=== PATIENT | male | born 1945 | race African-American/Black ===

== ENCOUNTER 2021-08-12 18:26 | Emergency (ER) | payer BC, MEDICARE ==
[~2021-08-12] VITALS: Ht 185.4 cm; Wt 95.3 kg
[~2021-08-12 18:26] MED LIST: CALCIUM CHLORIDE 1,000 MG/10 ML VIAL IV ONE; EPINEPHrine SYRINGE 1 MG/10 ML SYRINGE. ONE
--- NOTE | 2021-08-12 19:16 | PHYS DOC ---
Adult General Chief Complaint Chief Complaint: CPR/FULL ARREST HPI HPI Patient is a 76-year-old male who presents in cardiac arrest via EMS Review of Systems Review of Systems Review of systems unable to be obtained Physical Exam Physical Exam Constitutional: Well developed, well nourished, in acute distress and unresponsive, pale HENT: Normocephalic, atraumatic, oropharynx filled with dark black fluid, no gag reflex Eyes: Pupils 4 mm, bilaterally, fixed and unresponsive to light with no corneal reflex Neck: Normal range of motion, no notable trauma Cardiovascular: Cardiac arrest Lungs & Thorax: Cardiac arrest Abdomen: Abdomen distended and firm, with quick POC ultrasound showing no fluid Skin: Warm, dry, pale Back: No obvious traumas or bruising Extremities: No significant edema, traumas or bruising Neurologic: GCS of 3, unresponsive to all stimuli EKG EKG [] Radiology/Procedures Radiology/Procedures [] Heart Score C/O Chest Pain: N/A Risk Factors: Risk Factors: DM, Current or recent (<one month) smoker, HTN, HLP, family history of CAD, obesity. Risk Scores: Risk Factors: DM, Current or recent (<one month) smoker, HTN, HLP, family history of CAD, obesity. Course & Med Decision Making Course & Med Decision Making Patient is a 76-year-old male who presents in cardiac arrest. Per EMS patient had a witnessed arrest at approximately 645 to 6:50 PM. Family started CPR and called EMS. On arrival patient in cardiac arrest and ACLS begun. EMS coded patient for approximately 20 minutes and remained in asystole and PEA with no signs of life. Blood sugar greater than 200. EMS placed an LMA and an IO in the right humeral head and begin some fluid resuscitation. On arrival to the emergency department Matt in place performing chest compressions. Transferred to bed. Cardiac pads in place. Second IV placed. Given calcium chloride as patient is diabetic and hyperkalemic cardiac arrest on the differential. Epinephrine x1 on top of epinephrine x4 by EMS. Intubated with a 7.5 ET tube and continued bagging. Patient with significant amounts of either bile or blood in the oropharynx that continually needed suctioned. Every rhythm check after was asystole. Patient with no corneal reflex, fixed and dilated pupils, no gag reflex, no reaction to any stimulation. POC cardiac ultrasound showed no pericardial effusion but akinetic heart and no signs of life. Discussed patient with team for continuing resuscitation efforts. At approximately 6:42 PM on August 12, 2021 recessive efforts ceased and patient pronounced . [] Critical care time 30 minutes Dragon Disclaimer Dragon Disclaimer This electronic medical record was generated, in whole or in part, using a voice recognition dictation system. Departure Departure: Impression: Primary Impression: Cardiac arrest Condition: Referrals: PCP,CHACHA (PCP) MIGUEL ANGEL IGNACIO MD August 12, 2021 19:16
== END 2021-08-12 23:54 ==
LOC: ER 18:26
DX: I46.9 Cardiac arrest, cause unspecified (principal)
CPT/HCPCS: 31500; 92950; 99285; J0171